=== PATIENT | female | born 1950 | race Caucasian/White ===

== ENCOUNTER 2019-01-16 22:13 | Emergency (ER) | payer MEDICARE, BC, OTHER ==
[~2019-01-16] VITALS: Ht 160 cm; Wt 98.2 kg
[2019-01-16] MEDS ORDERED: PERCOCET 5MG/325MG TAB PO ONE (22:30)
[2019-01-16] MEDS ORDERED: CART300C PO (22:49)
[2019-01-16] MEDS ORDERED: NEUR100C PO (22:49)
[2019-01-16] MEDS ORDERED: COZA50TA PO (22:49)
[2019-01-16] MEDS ORDERED: FURO80TA2 PO (22:49)
[2019-01-16] MEDS ORDERED: AGGR1CAP PO (22:49)
[2019-01-16] MEDS ORDERED: OXYCODONE/APAP 5MG/325MG(BULK FOR ED) 1 TABLET PO ONE (23:00)
[2019-01-16] MEDS ORDERED: LEVO88TA24 PO (23:24)
[2019-01-16] MEDS ORDERED: COLE625TAB PO (23:24)
[2019-01-16] MEDS ORDERED: TOPR25TA PO (23:24)
[2019-01-16] MEDS ORDERED: POTA1TAB21 PO (23:24)
[2019-01-16] MEDS ORDERED: PROTPAK PO (23:24)
[2019-01-16] MEDS ORDERED: LIPI20TA PO (23:24)
[2019-01-16] MEDS ORDERED: GABI4TAB PO (23:24)
[2019-01-16] MEDS ORDERED: INSULANT SC (23:24)
[2019-01-16] MEDS ORDERED: PERC5TAB12 PO (23:27)
[2019-01-16 23:33] VITALS: BP 115/59
--- NOTE | 2019-01-17 07:28 | REP ---
Clinical: Trauma. Fall. Technique: Internal rotation, external rotation, Y view of the left shoulder. Findings: There is a comminuted fracture involving the humeral head/ proximal metaphysis including tuberosity. Subacromial space is normal. Acromioclavicular joint is normal. Impression: Fracture involving the humeral head Electronically Signed by Mark Day MD 01/17/2019 07:18 A
--- NOTE | 2019-01-17 07:29 | REP ---
Clinical: Trauma. Fall. Technique: AP and lateral views of the left forearm. Findings: Age-related osteopenia and degenerative changes are appreciated along with peripheral vascular disease. No acute fracture or dislocation. Impression: No acute fracture or dislocation. Electronically Signed by Mark Day MD 01/17/2019 07:19 A
== END 2019-01-16 23:41 | disposition home or self-care (01) ==
LOC: M ED 22:13
DX: S42.492A Other displaced fracture of lower end of left humerus, initial encounter for closed fracture (principal); S80.02XA Contusion of left knee, initial encounter; W19.XXXA Unspecified fall, initial encounter; Y92.129 Unspecified place in nursing home as the place of occurrence of the external cause; Y93.9 Activity, unspecified; Y99.9 Unspecified external cause status; I10 Essential (primary) hypertension; I50.9 Heart failure, unspecified; Z88.0 Allergy status to penicillin; Z88.1 Allergy status to other antibiotic agents; Z88.5 Allergy status to narcotic agent; Z88.8 Allergy status to other drugs, medicaments and biological substances